=== PATIENT | female | born 1990 | race Caucasian/White ===

== ENCOUNTER 2017-10-11 22:46 | Emergency (ER) | payer MEDICAID ==
[~2017-10-11] VITALS: Ht 160 cm; Wt 62.0 kg
[2017-10-11 23:20] VITALS: BP 112/79
== END 2017-10-12 00:27 | disposition left against medical advice (07) ==
LOC: ER 22:46
DX: J02.9 Acute pharyngitis, unspecified (principal); R05 Cough
CPT/HCPCS: 99281